=== PATIENT | male | born 1955 | race Caucasian/White ===

== ENCOUNTER 2016-09-11 21:19 | Emergency (ER) | payer MEDICARE ==
[~2016-09-11] VITALS: Ht 175.2 cm; Wt 68.9 kg
[~2016-09-11 21:19] MED LIST: ALLERGY RELIEF25 MG PO; DUONEB 3 MG/3 ML3 M1 INH; LEVOFLOXACIN500 MG PO; LOSARTAN POTASS50 M1 PO; PLAVIX75 M1 PO; PREDNISONE10 MG PO; Plendil2.5 MG PO; ROBITUSSIN AC 110 ML PO; SYMBICORT1 AE1 INH; VALIUM5 MG PO; VENLAFAXINE H37.5 M3 PO; Ventolin 02.5 MG/3 M INH; ZYPREXA5 M1 PO
[2016-09-11 21:33] VITALS: BP 179/87
[2016-09-11] MEDS ORDERED: GRALISE300 M1 PO (21:35)
[2016-09-11] MEDS ORDERED: HYDROCODONE BIT1 T11 PO (22:05)
[2016-09-11] MEDS ORDERED: CYCLOBENZAPRINE5 M3 PO (22:05)
== END 2016-09-11 22:10 | disposition home or self-care (01) ==
LOC: ED 21:19
DX: M79.605 Pain in left leg (principal); J44.9 Chronic obstructive pulmonary disease, unspecified; F17.200 Nicotine dependence, unspecified, uncomplicated; Z88.0 Allergy status to penicillin; Z88.8 Allergy status to other drugs, medicaments and biological substances; Z91.018 Allergy to other foods; Z79.899 Other long term (current) drug therapy; Z85.9 Personal history of malignant neoplasm, unspecified

== ENCOUNTER 2016-09-15 19:30 | Emergency (ER) | payer MEDICARE ==
[~2016-09-15] VITALS: Ht 175.2 cm; Wt 68.9 kg
[~2016-09-15 19:30] MED LIST changes: +CYCLOBENZAPRINE5 M3 PO; +GRALISE300 M1 PO; +HYDROCODONE BIT1 T11 PO
[2016-09-15 20:45] VITALS: BP 163/89
[2016-09-15] MEDS ORDERED: PREDNISONE50 MG PO (21:40)
== END 2016-09-15 21:47 | disposition home or self-care (01) ==
LOC: ED 19:30
DX: J44.1 Chronic obstructive pulmonary disease with (acute) exacerbation (principal); M79.669 Pain in unspecified lower leg; Z88.0 Allergy status to penicillin; Z88.8 Allergy status to other drugs, medicaments and biological substances; Z91.018 Allergy to other foods; Z79.899 Other long term (current) drug therapy

== ENCOUNTER 2016-09-20 17:34 | Inpatient (IN) | payer MEDICARE ==
[~2016-09-20] VITALS: Ht 175.3 cm; Wt 68.1 kg
[~2016-09-20 17:34] MED LIST changes: +PREDNISONE50 MG PO
[2016-09-20 17:39] VITALS: BP 155/89
[2016-09-20 18:05] LABS: BASO % 0.3 % (0.0-1.0); EOS # 0.6 10*3/uL (0.0-0.4); EOS % 4.8 % (1.0-4.0); HEMATOCRIT 47.5 % (42.0-52.0); HEMOGLOBIN 15.6 g/dl (14.0-18.0); IG # 0.1 10*3/uL (0.0-0.1); LYMPH # 2.6 10*3/uL (1.3-4.4); MEAN CELL VOLUME 105.6 fl (80.0-94.0); MEAN CORPUSCULAR HGB 34.7 pg (27.0-31.0); MEAN CORPUSCULAR HGB CONC 32.8 g/dl (33.0-37.0); MEAN PLATELET VOLUME 9.3 fl (9.6-12.3); MONO % 8.1 % (3.0-9.0); NEUT # 7.6 10*3/uL (2.3-7.9); NEUT % 64.4 % (47.0-73.0); PLATELET COUNT AUTOMATED 164 10*3/uL (130-400); RED CELL DISTRI WIDTH 12.5 % (0-14.5); WHITE BLOOD COUNT 11.8 10*3/uL (4.8-10.8)
[2016-09-20 18:13] LABS: PROTHROMBIN TIME 10.8 SECONDS (9.0-12.4)
[2016-09-20 18:19] LABS: ABG BASE EXCESS 2.7 mmol/L (-2.0-2.0); ABG CO2 CONTENT 30.4 mmol/L (23-27); ABG HCO3 28.8 mmol/l (22-26); ABG TEMPERATURE 98.2 F (98.0-99.0); ARTERIAL BLOOD GAS PH 7.364 (7.35-7.45)
[2016-09-20 18:21] LABS: ALBUMIN 3.9 gm/dl (3.1-4.5); ALKALINE PHOSPHATASE 117 U/L (45-117); BILIRUBIN, TOTAL 0.7 mg/dl (0.2-1.0); BUN 10 mg/dl (7-24); CARBON DIOXIDE 31 mmol/L (21-32); CHLORIDE 101 mmol/L (98-107); CKMB 1.2 ng/ml (0.5-3.6); CPK 40 U/L (39-308); EST GLOM FILT AFRICAN AMERICAN > 60 ml/min; GLUCOSE 117 mg/dL (65-99); MAGNESIUM 2.1 mg/dL (1.5-2.1); POTASSIUM 3.8 mmol/L (3.5-5.1); SGOT/AST 60 IU/L (3-35); SGPT/ALT 48 U/L (12-78); SODIUM 140 mmol/L (136-145)
[2016-09-20 18:22] LABS: C-REACTIVE PROTEIN < 0.29 MG/DL (0-0.3); TROPONIN I < 0.015 ng/ml (<0.045)
[2016-09-20 19:21] VITALS: BP 164/80
[2016-09-20 19:35] VITALS: BP 160/94
[2016-09-20 20:02] LABS: LA>2 REFLEX 2 HR DRAW NOW
[2016-09-20 20:54] LABS: BILIRUBIN NEGATIVE (NEGATIVE); BLOOD NEGATIVE (NEGATIVE); CLARITY CLEAR (CLEAR); COLOR YELLOW (YELLOW); GLUCOSE NEGATIVE (NEGATIVE); KETONE NEGATIVE (NEGATIVE); LEUKO ESTERASE NEGATIVE (NEGATIVE); NITRITE NEGATIVE (NEGATIVE); PROTEIN NEGATIVE (NEGATIVE); SPECIFIC GRAVITY 1.015 (1.005-1.030); UROBILINOGEN 0.2 E.U./dl (0.2-1.0)
[2016-09-20 21:01] LABS: BACTERIA TRACE; HYALINE CAST 0-2
[2016-09-20 21:02] LABS: EPITHELIAL CELLS 0-2; RBC 0-2 rbc/hpf (0-2); URINE REFLEX COMMENT NO (NO)
[2016-09-21] VITALS: BP 164/86
[2016-09-21 04:00] VITALS: BP 156/86
[2016-09-21] MEDS ORDERED: MORPHINE SULFAT15 MG PO (05:02)
[2016-09-21] MEDS ORDERED: TRAZODONE50 MG PO (05:03)
[2016-09-21] MEDS ORDERED: BENADRYL ALLERG25 M5 PO (05:04)
[2016-09-21 05:48] LABS: HEMOGLOBIN 13.7 g/dl (14.0-18.0); MEAN CELL VOLUME 104.7 fl (80.0-94.0); MEAN CORPUSCULAR HGB 34.2 pg (27.0-31.0); MEAN CORPUSCULAR HGB CONC 32.6 g/dl (33.0-37.0); MEAN PLATELET VOLUME 9.7 fl (9.6-12.3); RED BLOOD COUNT 4.01 10*6/uL (4.50-5.90); RED CELL DISTRI WIDTH 12.2 % (0-14.5); WHITE BLOOD COUNT 5.3 10*3/uL (4.8-10.8)
[2016-09-21 05:56] LABS: HEMOGLOBIN A1c 5.5 % (4.8-5.6)
[2016-09-21 06:16] LABS: ALBUMIN 3.1 gm/dl (3.1-4.5); BILIRUBIN, TOTAL 0.7 mg/dl (0.2-1.0); BUN 11 mg/dl (7-24); CARBON DIOXIDE 28 mmol/L (21-32); CHLORIDE 100 mmol/L (98-107); CHOLESTEROL 122 mg/dL (<200); EST GLOM FILT AFRICAN AMERICAN > 60 ml/min; GLUCOSE 136 mg/dL (65-99); MAGNESIUM 1.7 mg/dL (1.5-2.1); PHOSPHOROUS 3.4 mg/dL (2.5-4.9); POTASSIUM 4.3 mmol/L (3.5-5.1); SGOT/AST 41 IU/L (3-35); SGPT/ALT 37 U/L (12-78); SODIUM 137 mmol/L (136-145); TOTAL PROTEIN 6.7 gm/dL (6.4-8.2); TRIGLYCERIDES 53 mg/dl (<150); VLDL CHOLESTEROL 11 mg/dL (6-40)
[2016-09-21 06:22] LABS: ALKALINE PHOSPHATASE 83 U/L (45-117); HDL CHOLESTEROL 71 mg/dl (40-60); LDL CHOLESTEROL 40 mg/dL (9-159); THYROID STIM HORMONE (HS) 0.432 uIU/ml (0.358-4.75)
[2016-09-21 06:26] LABS: INTERNATIONAL NORM RATIO 1.1 (2.0-3.5); PROTHROMBIN TIME 11.5 SECONDS (9.0-12.4)
[2016-09-21 06:38] LABS: FOLIC ACID 19.73 ng/mL (>5.38); PLATELET COUNT AUTOMATED 100 10*3/uL (130-400); VITAMIN D, 25-HYDROXY 39.1 ng/mL (30-100)
[2016-09-21 06:40] LABS: LYMPHOCYTE # 0.2 10*3/uL (1.3-4.4); NEUTROPHIL # 5.1 10*3/uL (2.3-7.9); NEUTROPHILS 97 % (47-73); TOTAL CELLS COUNTED 100 #CELLS
[2016-09-21 06:41] LABS: PLATELET SUFFICIENCY LOW (NORMAL)
[2016-09-21 08:00] VITALS: BP 152/91
[2016-09-21 12:00] VITALS: BP 150/88
[2016-09-21 16:00] VITALS: BP 162/90
[2016-09-21 20:00] VITALS: BP 164/86
[2016-09-22] VITALS: BP 145/85
[2016-09-22 04:00] VITALS: BP 136/79
[2016-09-22 06:16] LABS: EOS % 0.5 % (1.0-4.0); HEMATOCRIT 40.7 % (42.0-52.0); HEMOGLOBIN 13.5 g/dl (14.0-18.0); LYMPH # 0.9 10*3/uL (1.3-4.4); LYMPH % 11.1 % (27.0-41.0); MEAN CELL VOLUME 107.1 fl (80.0-94.0); MEAN CORPUSCULAR HGB 35.5 pg (27.0-31.0); MEAN CORPUSCULAR HGB CONC 33.2 g/dl (33.0-37.0); MEAN PLATELET VOLUME 9.4 fl (9.6-12.3); MONO # 0.6 10*3/uL (0.1-1.0); MONO % 7.2 % (3.0-9.0); NEUT # 6.9 10*3/uL (2.3-7.9); PLATELET COUNT AUTOMATED 102 10*3/uL (130-400); RED CELL DISTRI WIDTH 12.4 % (0-14.5); WHITE BLOOD COUNT 8.5 10*3/uL (4.8-10.8)
[2016-09-22 06:41] LABS: BUN 12 mg/dl (7-24); CARBON DIOXIDE 34 mmol/L (21-32); CHLORIDE 102 mmol/L (98-107); GLUCOSE 85 mg/dL (65-99); SODIUM 140 mmol/L (136-145)
[2016-09-22 06:54] LABS: EST GLOM FILT AFRICAN AMERICAN > 60 ml/min
[2016-09-22 06:55] LABS: VANCOMYCIN TROUGH 23.9 ug/mL (10-20)
[2016-09-22 08:00] VITALS: BP 163/83
[2016-09-22 12:00] VITALS: BP 150/64
[2016-09-22 16:00] VITALS: BP 159/79
[2016-09-22 20:00] VITALS: BP 155/77
[2016-09-23] VITALS: BP 178/94
[2016-09-23 04:00] VITALS: BP 180/90
[2016-09-23 05:59] LABS: BASO % 0.1 % (0.0-1.0); EOS % 0.6 % (1.0-4.0); HEMATOCRIT 39.3 % (42.0-52.0); HEMOGLOBIN 12.8 g/dl (14.0-18.0); LYMPH # 1.1 10*3/uL (1.3-4.4); LYMPH % 15.7 % (27.0-41.0); MEAN CELL VOLUME 105.1 fl (80.0-94.0); MEAN CORPUSCULAR HGB 34.2 pg (27.0-31.0); MEAN CORPUSCULAR HGB CONC 32.6 g/dl (33.0-37.0); MEAN PLATELET VOLUME 9.6 fl (9.6-12.3); MONO # 0.6 10*3/uL (0.1-1.0); MONO % 8.7 % (3.0-9.0); NEUT # 5.3 10*3/uL (2.3-7.9); NEUT % 74.6 % (47.0-73.0); PLATELET COUNT AUTOMATED 96 10*3/uL (130-400); RED BLOOD COUNT 3.74 10*6/uL (4.50-5.90); RED CELL DISTRI WIDTH 12.3 % (0-14.5); WHITE BLOOD COUNT 7.1 10*3/uL (4.8-10.8)
[2016-09-23 06:29] LABS: BUN 12 mg/dl (7-24); CARBON DIOXIDE 33 mmol/L (21-32); CHLORIDE 101 mmol/L (98-107); EST GLOM FILT AFRICAN AMERICAN > 60 ml/min; GLUCOSE 78 mg/dL (65-99); POTASSIUM 3.6 mmol/L (3.5-5.1); SODIUM 140 mmol/L (136-145)
[2016-09-23 08:00] VITALS: BP 170/64
[2016-09-23] MEDS ORDERED: PREDNISONE50 MG PO (10:34)
[2016-09-23] MEDS ORDERED: LEVAQUIN500 M2 PO (10:34)
[2016-09-23] MEDS ORDERED: COZAAR100 MG PO (10:53)
[2016-09-23] MEDS ORDERED: OXYCONTIN10 M1 PO (10:56)
[2016-09-23] MEDS ORDERED: MORPHINE SULFAT15 MG PO (16:23)
[2016-09-23 20:35] LABS: LEGIONELLA URINARY ANTIGEN Negative (Negative); ORGANISM ID Not indicated. (.); SPECIMEN SOURCE Urine (.); STREPTOCOCCUS PNEUMONIAE AG Negative (Negative)
== END 2016-09-23 12:12 | disposition home or self-care (01) | DRG 871 ==
LOC: ED 17:34 → EDHOLD 18:30 → ICCU 18:30
PROVIDERS: Emergency Medicine; Family Medicine; Hospitalist; Internal Medicine
DX: A41.9 Sepsis, unspecified organism (principal); J18.9 Pneumonia, unspecified organism; J96.01 Acute respiratory failure with hypoxia; J96.02 Acute respiratory failure with hypercapnia; C78.00 Secondary malignant neoplasm of unspecified lung; C78.80 Secondary malignant neoplasm of unspecified digestive organ; C79.00 Secondary malignant neoplasm of unspecified kidney and renal pelvis; J96.22 Acute and chronic respiratory failure with hypercapnia; C79.51 Secondary malignant neoplasm of bone; J44.0 Chronic obstructive pulmonary disease with (acute) lower respiratory infection; J44.1 Chronic obstructive pulmonary disease with (acute) exacerbation; R65.20 Severe sepsis without septic shock; C80.1 Malignant (primary) neoplasm, unspecified; I10 Essential (primary) hypertension; G62.9 Polyneuropathy, unspecified; R73.9 Hyperglycemia, unspecified; F17.210 Nicotine dependence, cigarettes, uncomplicated; Z71.6 Tobacco abuse counseling; M54.32 Sciatica, left side; Z79.02 Long term (current) use of antithrombotics/antiplatelets; Z79.899 Other long term (current) drug therapy; Z92.21 Personal history of antineoplastic chemotherapy; Z88.0 Allergy status to penicillin; Z88.8 Allergy status to other drugs, medicaments and biological substances; Z91.018 Allergy to other foods; Z80.8 Family history of malignant neoplasm of other organs or systems; Z99.81 Dependence on supplemental oxygen; Z87.440 Personal history of urinary (tract) infections; D69.6 Thrombocytopenia, unspecified